=== PATIENT | female | born 1935 | race Native Hawaiian/Other Pacific Islander ===

== ENCOUNTER 2017-03-23 13:10 | Outpatient (CLI) | payer OTHER ==
[~2017-03-23 13:10] MED LIST: AMLO2.5T PO; COZAAR100 MG PO; DONE5TAB PO; LEXAPRO20 MG PO; METO50TA27 PO; NAMENDA XR28 MG PO; NORVASC PO; OMEP20CA PO; PANT40TA PO; POLY3350 PO; RISP1TAB PO
[2017-03-23] MEDS ORDERED: CIPR500T PO (13:49)
[2017-03-23] MEDS ORDERED: AMLODIPINE BESYLATE PO (13:50)
[2017-03-23] MEDS ORDERED: LIPITOR40 MG PO (13:50)
[2017-03-23] MEDS ORDERED: CLOP75TA2 PO (13:51)
[2017-03-23] MEDS ORDERED: CELEXA20 MG PO (13:51)
[2017-03-23] MEDS ORDERED: HYDRALAZINE25 MG PO (13:52)
[2017-03-23] MEDS ORDERED: HYDR5TAB9 PO (13:53)
[2017-03-23] MEDS ORDERED: CLARITIN10 M1 PO (13:54)
[2017-03-23] MEDS ORDERED: RISP1TAB PO (13:59)
[2017-04-05] MEDS ORDERED: MELOXICAM7.5 MG PO (17:12)
[2017-04-05] MEDS ORDERED: ULTRAM 50MG TAB PO (17:12)
[2017-04-05] MEDS ORDERED: RISP1TAB PO (17:12)
== END 2017-03-23 13:35 | disposition short-term general hospital (02) ==
LOC: AMB 13:10
DX: F03.91 Unspecified dementia, unspecified severity, with behavioral disturbance (principal)
CPT/HCPCS: A0425; A0429